=== PATIENT | male | born 1980 | race Caucasian/White ===

== ENCOUNTER 2017-06-29 14:26 | Emergency (ER) | payer OTHER ==
--- NOTE | 2017-06-29 15:19 | ED PDOC ---
Arrival/HPI - General Chief Complaint: Flu-like Symptoms Time Seen by Provider: 06/29/17 15:08 Historian: Patient - History of Present Illness Narrative History of Present Illness (Text): 06/29/17 15:16 36yo male with no PMhx who present with complaint of nonproductive cough, headache, generalized bodyache, subjective fever x 2weeks. Notes that he saw his PMD and was given Tamiflu which he finished days ago. States he is also on Promethazine with codeine without relieve. States he took Ibuprofen at 0600am. Denies chest pain, nausea, vomiting, abdominal pain, any other complaint. He notes that his sons was sick with cold symptoms first. Past Medical History - Provider Review Nursing Documentation Reviewed: Yes - Infectious Disease Hx of Infectious Diseases: None - Psychiatric Hx Substance Use: No Family/Social History - Physician Review Nursing Documentation Reviewed: Yes Family/Social History: Unknown Family HX Smoking Status: Never Smoked Hx Alcohol Use: No Hx Substance Use: No Allergies/Home Meds Allergies/Adverse Reactions: Allergies No Known Allergies Allergy (Verified 06/29/17 15:10) Review of Systems - Physician Review All systems were reviewed & negative as marked: Yes - Review of Systems Constitutional: Fatigue, Fevers Eyes: Normal ENT: Normal Respiratory: Cough. absent: SOB, Sputum, Wheezing Cardiovascular: Normal Gastrointestinal: Normal Genitourinary Male: Normal Musculoskeletal: Myalgias Skin: Normal Neurological: Normal Endocrine: Normal Hemo/Lymphatic: Normal Psychiatric: Normal Physical Exam Vital Signs Reviewed: Yes Vital Signs Temp Pulse Resp BP Pulse Ox 06/29/17 15:06 99 F 97 H 18 120/75 96 Temperature: Afebrile Blood Pressure: Normal Pulse: Regular Respiratory Rate: Normal Appearance: Positive for: Well-Appearing, Non-Toxic, Comfortable Pain Distress: None Mental Status: Positive for: Alert and Oriented X 3 - Systems Exam Head: Present: Atraumatic, Normocephalic Pupils: Present: PERRL Extroacular Muscles: Present: EOMI Conjunctiva: Present: Normal Mouth: Present: Moist Mucous Membranes Neck: Present: Normal Range of Motion Respiratory/Chest: Present: Clear to Auscultation, Good Air Exchange. No: Respiratory Distress, Accessory Muscle Use, Wheezes, Decreased Breath Sounds, Rales, Retracting, Rhonchi, Tachypneic, Tender to Palpation Cardiovascular: Present: Regular Rate and Rhythm, Normal S1, S2. No: Murmurs Abdomen: Present: Normal Bowel Sounds. No: Tenderness, Distention, Peritoneal Signs Back: Present: Normal Inspection Upper Extremity: Present: Normal Inspection. No: Cyanosis, Edema Lower Extremity: Present: Normal Inspection. No: Edema Neurological: Present: GCS=15, CN II-XII Intact, Speech Normal Skin: Present: Warm, Dry, Normal Color. No: Rashes Psychiatric: Present: Alert, Oriented x 3, Normal Insight, Normal Concentration Medical Decision Making ED Course and Treatment: 06/29/17 17:20 PT in ED for stated history. He was hemodynamcially stable. He finished a course of Tamiflu and on Prometh with codeine CXR NAD Result was DW the pt. He will be DC home with Ibuprofen 600mg. Advsied to continue with his medications. symptoms will be treated symptomatically for viral syndrome. Advised to drink plenty of fluid and rest. Referred to his PMD. - Lab Interpretations Lab Results: Lab Results 06/29/17 16:15: Influenza Typ A,B (EIA) Negative for flu a/b - RAD Interpretation Radiology Orders: 06/29/17 15:14 CHEST TWO VIEWS (PA/LAT) [RAD] Stat - Medication Orders Current Medication Orders: Discontinued Medications Ketorolac Tromethamine (Toradol) 60 mg IM STAT STA Stop: 06/29/17 15:16 Last Admin: 06/29/17 16:39 Dose: 60 mg MAR Pain Assessment Document 06/29/17 16:39 SOLOMON (Rec: 06/29/17 16:39 SOLOMON [facility] [id number]) Pain Reassessment Is this a pain reassessment? Yes Presence of Pain Presence of Pain Yes Pain Scale Used Pain Scale Used Numeric Location Pain Location Body Site Generalized IM Administration Charges Document 06/29/17 16:39 SOLOMON (Rec: 06/29/17 16:39 SOLOMON [facility] [id number]) Injection Site MAR Injection Site Left Deltoid Charges for Administration # of IM Administrations 1 Disposition/Present on Arrival - Present on Arrival Any Indicators Present on Arrival: No History of DVT/PE: No History of Uncontrolled Diabetes: No Urinary Catheter: No History of Decub. Ulcer: No History Surgical Site Infection Following: None - Disposition Have Diagnosis and Disposition been Completed?: Yes Diagnosis: Viral syndrome Disposition: HOME/ ROUTINE Disposition Time: 17:25 Patient Plan: Discharge Condition: STABLE Discharge Instructions (ExitCare): Viral Syndrome (ED) Additional Instructions: follow up with your doctor Drink plenty of fluid and rest Return to ED for any new or worsening symptoms Prescriptions: Ibuprofen [Motrin Tab] 600 mg PO Q6 #20 tab Referrals: [facility] at [facility] [place] [Outside] - Follow up with primary Forms: [employer] ([place])
[2017-06-29 17:24] VITALS: BP 121/74; PULSE 86; RESP 16; TEMP 99.5; O2SAT 99
--- NOTE | 2017-06-30 10:21 | RAD ---
HISTORY: cough COMPARISON: No prior. TECHNIQUE: Chest PA and lateral FINDINGS: LUNGS: No active pulmonary disease. PLEURA: No significant pleural effusion identified. No pneumothorax apparent. CARDIOVASCULAR: Normal. OSSEOUS STRUCTURES: No significant abnormalities. VISUALIZED UPPER ABDOMEN: Normal. OTHER FINDINGS: None. IMPRESSION: No active disease.
== END 2017-06-29 17:48 | disposition home or self-care (01) ==
LOC: ED 14:26
DX: B34.9 Viral infection, unspecified (principal)
CPT/HCPCS: 71046; 87804; 96372; 99282; J1885